=== PATIENT | male | born 1965 | race Caucasian/White ===

== ENCOUNTER → 2019-01-19 | Outpatient (CLI) | payer OTHER ==
[2019-01-19 09:15] LABS: HCT 44.2 % (39.0-53.0); HGB 14.8 gm/dL (13.0-17.5); MCH 31.1 pg (25.0-35.0); MCHC 33.4 g/dL (31.0-37.0); MCV 93.1 fL (80.0-100.0); Mean Platelet Volume 7.1; Platelet Count 314 k/uL (150-450); RBC 4.75 m/uL (4.30-5.90); RDW 12.8 % (11.5-15.5); WBC 8.1 k/uL (3.8-10.6)
[2019-01-19 09:21] LABS: Anion Gap 6 mmol/L; Blood Urea Nitrogen 16 mg/dL (9-20); Carbon Dioxide 28 mmol/L (22-30); Chloride 104 mmol/L (98-107); Glucose 117 mg/dL (74-99); Potassium 4.5 mmol/L (3.5-5.1); Sodium 138 mmol/L (137-145)
== END ==
LOC: LABPAT 07:49
PROVIDERS: ATTEND Internal Medicine Clinical Cardiac Electrophysiology
DX: Z01.812 Encounter for preprocedural laboratory examination (principal); I42.0 Dilated cardiomyopathy; I49.3 Ventricular premature depolarization
CPT/HCPCS: 36415; 80051; 82565; 82947; 84520; 85027

== ENCOUNTER 2019-01-25 10:23 | Day surgery (SDC) | payer OTHER ==
[~2019-01-25 10:23] MED LIST: SODIUM CHLORIDE 0.9% 1,000 ML IV SCH
[2019-01-25] MEDS ORDERED: SODIUM CHLORIDE 0.9% 1,000 ML IV ONE (11:00)
[2019-01-25] MEDS ORDERED: fentaNYL (PF) 50 MCG/ML 2 ML AMP ONE (11:12)
[2019-01-25] MEDS ORDERED: MIDAZOLAM 2 MG/2 ML VIAL ONE (11:12)
[2019-01-25] MEDS ORDERED: HEPARIN SODIUM,PORCINE 10,000 UNIT/ML 1 ML VIAL ONE (11:12)
[2019-01-25] MEDS ORDERED: ISOPROTERENOL 250 MCG/1.25 ML SYR IV ONE (11:12)
[2019-01-25] MEDS ORDERED: PROTAMINE SULFATE 10 MG/ML 5 ML VIAL IV ONE (11:12)
[2019-01-25] MEDS ORDERED: PROPOFOL 10 MG/ML 20 ML VIAL IV ONE (11:12)
[2019-01-25] MEDS ORDERED: LIDOCAINE 1% INJ 10MG/ML (20 ML MDV) ONE ×3 (11:40→15:36)
[2019-01-25] MEDS ORDERED: HEPARIN SODIUM 1,000 UN/ML (10ML VL) ONE ×2 (11:44→11:52)
[2019-01-25] MEDS ORDERED: LIDOCAINE 1% INJ 10MG/ML (20 ML MDV) SQ ONE (11:47)
[2019-01-25] MEDS ORDERED: HEPARIN SOD,PORK IN 0.45% NACL 25,000 UNIT in 0.45% NACL 1 250ML.BAG IV ONE (12:00)
[2019-01-25] MEDS ORDERED: HEPARIN SODIUM (1,000 UNIT/ML) 1,000 UNIT in SODIUM CHLORIDE 0.9% 1,000 ML IRRIGATION ONE (12:19)
[2019-01-25] MEDS ORDERED: HYDROcodone/APAP 5-325MG 1 EACH TAB PO PRN (15:56)
[2019-01-25] MEDS ORDERED: ACETAMINOPHEN IV (For NPO) 1,000 MG in EMPTY BAG 1 BAG IVPB ONE (15:56)
[2019-01-25] MEDS ORDERED: ACETAMINOPHEN TAB 325 MG TAB PO PRN (15:56)
--- NOTE | 2019-01-25 17:16 | PCN ---
PROCEDURE NOTE Mr. Harmon is a gentleman with cardiomyopathy, predominantly nonischemic, with history of RCA stenosis, status post stenting, whose cardiomyopathy has not improved. However, he has very frequent PVCs and he was advised an EP study and ablation for his PVCs, reassessment of LV function thereafter prior to consideration of ICD implantation. Patient was brought to the EP lab in a fasting state. Written informed consent was obtained prior to the procedure. The procedure performed under conscious sedation. The patient had predominantly one morphology of PVCs. This PVC had a right bundle branch block morphology, upright QRSs in the rest of the precordial leads, upright QRSs in the inferior leads and an RS pattern in lead I. The earliest onset of the QRS was in lead I. Sinus cycle length 945 milliseconds. GA interval 155 milliseconds. QRS 120 milliseconds. QT 394 milliseconds. Baseline AH interval 63 milliseconds and HV interval 37 milliseconds. An 8-[place] arterial sheath was placed in the right femoral artery, one venous sheath in the right femoral vein, 2 venous sheaths in the left femoral vein. Diagnostic mapping and ablation catheter and intracardiac echo catheters were placed. Catheters were placed in the high right atrium, His bundle area, right ventricle, coronary sinus and the left ventricle. Intracardiac echocardiography was performed and 3D mapping of the left ventricle was performed. At baseline there was no pericardial effusion and left ventricular ejection fraction was reduced. At the end of the procedure, assessment of pericardium on intracardiac echocardiography revealed no evidence for pericardial effusion, and the patient tolerated the procedure well without any acute complications. Initially the frequency of his PVCs under sedation were quite few; however, with atrial pacing, particularly with high right atrial and coronary sinus pacing at a cycle length of about 600 milliseconds, his PVCs became more frequent. Therefore, most of the PVC mapping and the mapping of the left ventricle was performed during atrial pacing. VA Wenckebach block was greater than 600 milliseconds. The following areas were mapped: 1. The aortic cusps and aortic root, particularly the right coronary cusp and the left coronary cusp and the commissure between them (activation mapping). 2. The left ventricle with particular focus on the anterior LVOT wall and the anterior base of the left ventricle. 3. The coronary sinus. Pacing within the coronary sinus, as close to the earliest site of activation in the LVOT, resulted in very poor pace maps. The LVOT was mapped in detail. At the earliest site, the bipolar electrograms were early with the unipolar electrograms; although negative, were only on time with the onset of the QRS. RF ablation in the LVOT was performed. The earliest site was just below the aortic cusps close to the junction between the right coronary and the left coronary cusp and slightly leftwards. The left coronary artery was mapped. The ostium of the left main was mapped using intracardiac echo. When the earliest site in the LVOT was ablated endocardially with good power and temperature up to 25-30 estrella, suppression of PVCs occurred, but the PVCs then returned. This did result in significant reduction of the PVCs, but the PVCs would return, especially with the atrial pacing. Mapping and ablation was performed within the right and left coronary cusps corresponding to the area in juxtaposition to the LVOT area, which was the earliest site. Clearly the LVOT was earlier than the aortic cusp. When complete elimination could not be achieved from the LVOT, 10-second RF lesions within the cusp were performed at 10 estrella. About 4 lesions were applied exactly in juxtaposition to where the LVOT ablations were performed. As noted above, the coronary sinus pace maps were very suboptimal, and therefore no ablation was performed within the coronary sinus. LVOT ablations were continued, slightly leftwards of earliest site, and this again resulted in complete suppression during RF ablation and further reduction in the PVC frequency. At the end of the procedure, pacing was performed at high output to document non- capture at the sites of ablation. The patient tolerated the procedure well without any acute complications, and all catheters were then removed. Heparin was reversed. RESULT: 1. Diagnostic EP study revealing predominantly one PVC morphology originating from the left ventricular outflow tract anteriorly just below the junction between the right and left coronary cusps and slightly towards the left side. Suppression with RF ablation and with mechanical pressure at this site. 2. RF ablation was also delivered in the aortic cusps, both at the level of the commissure between the RCC and LCC as well as towards the left cusp in close juxtaposition to the endocardial sites. These were very short low power bursts of about 10 estrella for 10 seconds each. 3. The coronary sinus and the coronary veins had very poor pace maps and no ablation was performed here. This resulted in significant reduction in the PVC burden, but the patient continued to have occasional clinical PVCs. This site most likely represents a slightly deep myocardial focus in the anterior LVOT. PLAN: Follow-up 24-hour Holter monitor and reassessment of LV function in about 4-6 weeks prior to making a decision regarding ICD implantation. AMELIE / SILVIA: [id number] /
[2019-01-25] MEDS: CARVEDILOL 3.125 MG TAB PO SCH (17:59)
[2019-01-25 18:17] VITALS: BMI 28.5
[2019-01-25] MEDS: SACUBITRIL/VALSARTAN 24 MG-26 MG TABLET PO SCH (20:33)
[2019-01-26] MEDS ORDERED: PANTOPRAZOLE 40 MG TABLET PO SCH (07:30)
[2019-01-26] MEDS: CARVEDILOL 3.125 MG TAB PO SCH (07:55)
[2019-01-26] MEDS: SACUBITRIL/VALSARTAN 24 MG-26 MG TABLET PO SCH (07:56)
--- NOTE | 2019-01-26 08:13 | P.DS ---
Providers Attending physician: Alexis Copeland Primary care physician: Stated None Hospital Course: Patient is doing well. His resting comfortably in bed. He has been ambulating in the hallways. Blood pressure is low normal. No JVD or no chest discomfort dizziness lightheadedness Telemetry shows PVCs Twelve-lead ECG shows clinical PVCs On examination his blood pressure is 127/66, 94/59 mmHg, pulse rate in the 60s afebrile 90F normal respirations Breath sounds are clear no rhonchi no crackles Abdomen soft nontender Heart sounds S1 and S2 are normal no murmurs no rub no gallop Extremities warm Groins of healed well there is no hematoma no swelling minimal tenderness Impression Frequent PVCs, deep myocardial focus anterior LVOT He has a history of predominantly nonischemic cardio myopathy Also has coronary artery disease stenting to the RCA in the past He was brought in for mapping and ablation of the PVCs The PVCs were mapped to the LVOT anterior wall just under the aortic valve, just below the commissure between the RCC and LCC and slightly towards the left side under the LCC, away from the left main The aortic cusps were mapped and signals were late The coronary veins was mapped and the pacemap showed concordance in the low 80s%. The morphology was completely different in lead 1 While the bipolar electrograms were early as compared to the onset of the PVC, the unipolar electrograms although deep negative were only on time with the onset of a QRS. In addition with mechanical pressure in the anterior LVOT suppression could be obtained at the earliest site RF ablation would result in temporary suppression of the PVCs. After RF delivery the PVCs return In the contact force was improved to between 15-20 g daily the suppression of the PVCs post RF was definitely longer with PVCs still occurred Final impression: Frequent PVCs originating the anterior LVOT deep myocardial focus, the aortic root was also mapped the coronary veins were also mapped Plan Discharge home today on cardio myopathy in heart failure medications and follow- up within 1-2 weeks for a groin check We will see him again in about 6-8 weeks and a 24-hour Holter monitor and a 2-D echo will be ordered. Thereafter decision regarding ICD implant Continue heart failure medications which has been well maximized Patient Condition at Discharge: Stable Plan - Discharge Summary Discharge Rx Participant: Yes New Discharge Prescriptions: No Action Omeprazole Magnesium [PriLOSEC OTC] 20 mg PO DAILY Aspirin 81 mg PO DAILY chew Atorvastatin [Lipitor] 80 mg PO DAILY #90 tab Carvedilol [Coreg] 3.125 mg PO BID-W/MEALS #180 tab Clopidogrel [Plavix] 75 mg PO DAILY #90 tab Furosemide [Lasix] 40 mg PO DAILY #90 tab Nitroglycerin Sl Tabs [Nitrostat] 0.4 mg SUBLINGUAL Q5M PRN #25 tab PRN Reason: Chest Pain Sacubitril/Valsartan [Entresto 24 mg-26 mg Tablet] 1 each PO BID #180 tablet Spironolactone [Aldactone] 25 mg PO DAILY #90 tab Discharge Medication List Omeprazole Magnesium [PriLOSEC OTC] 20 mg PO DAILY 07/17/18 [History] Aspirin 81 mg PO DAILY chew 07/21/18 [Rx] Atorvastatin [Lipitor] 80 mg PO DAILY #90 tab 07/21/18 [Rx] Carvedilol [Coreg] 3.125 mg PO BID-W/MEALS #180 tab 07/21/18 [Rx] Clopidogrel [Plavix] 75 mg PO DAILY #90 tab 07/21/18 [Rx] Furosemide [Lasix] 40 mg PO DAILY #90 tab 07/21/18 [Rx] Nitroglycerin Sl Tabs [Nitrostat] 0.4 mg SUBLINGUAL Q5M PRN #25 tab 07/21/18 [Rx] Sacubitril/Valsartan [Entresto 24 mg-26 mg Tablet] 1 each PO BID #180 tablet 07/21/18 [Rx] Spironolactone [Aldactone] 25 mg PO DAILY #90 tab 07/21/18 [Rx] Follow up Appointment(s)/Referral(s): Alexis Copeland MD [STAFF PHYSICIAN] - 2 Weeks (Groin check in [address] Patten/Diane) Activity/Diet/Wound Care/Special Instructions: Post EP study - Ablation instructions 1. Keep access sites dry for 2 days. 2. No heavy lifting or straining for 2 days. 3. Avoid bending the hips repeatedly for 2 days. 4. You may go up and down stairs slowly Call if the following is noted 1. Bleeding, increasing swelling or pain at the access sites. 2. Increasing chest discomfort, especially upon taking a deep breath. 3. Increasing shortness of breath, at rest or with exertion. 4. Undue cough / phlegm 5. Difficulty or pain while swallowing. 6. Pain or change in color in the extremities. 7. Fever, chills, rigors. 8. Increasing headache or neurologic symptoms. 9. Dizziness, fainting, palpitations No change in medications Follow-up with Dr. Patten/Diane Tillman within 2 weeks for a groin check
[2019-01-26] MEDS ORDERED: FUROSEMIDE 40 MG TAB PO SCH (09:00)
[2019-01-26] MEDS ORDERED: ATORVASTATIN 80 MG TAB PO SCH (09:00)
[2019-01-26] MEDS ORDERED: CLOPIDOGREL 75 MG TAB PO SCH (09:00)
[2019-01-26] MEDS ORDERED: SPIRONOLACTONE 25 MG TAB PO SCH (09:00)
[2019-01-26] MEDS ORDERED: ASPIRIN 81 MG PO SCH (09:00)
[2019-01-26 11:39] VITALS: BP 103/63; PULSE 51; RESP 18; TEMP 97.7
== END 2019-01-26 14:02 | disposition home or self-care (01) ==
LOC: CATHEP 10:23 → 1SOBS 15:12 → CATHEP 01-26 14:02
PROVIDERS: ATTEND Internal Medicine Clinical Cardiac Electrophysiology
DX: I49.3 Ventricular premature depolarization (principal); I42.0 Dilated cardiomyopathy; I25.10 Atherosclerotic heart disease of native coronary artery without angina pectoris; I11.0 Hypertensive heart disease with heart failure; I50.22 Chronic systolic (congestive) heart failure; Z72.0 Tobacco use; Z95.5 Presence of coronary angioplasty implant and graft; E78.5 Hyperlipidemia, unspecified; Z79.02 Long term (current) use of antithrombotics/antiplatelets; Z79.82 Long term (current) use of aspirin; Z79.899 Other long term (current) drug therapy
CPT/HCPCS: 85347; 93662; 93654; C1894; C1769 ×2; C1730 ×3; C1759; C1732; J2250; J2720; J1644 ×3; J2001; J3010; J2704

== ENCOUNTER 2019-04-16 07:25 | Emergency (ER) | payer OTHER ==
[2019-04-16 07:35] VITALS: RESP 18
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
[2019-04-16 08:13] LABS: ALT 48 U/L (21-72); AST 52 U/L (17-59); African American GFR (CKD) >90 (>60 ml/min/1.73 sqM); Albumin 4.6 g/dL (3.5-5.0); Alkaline Phosphatase 88 U/L (38-126); Anion Gap 10 mmol/L; Blood Urea Nitrogen 12 mg/dL (9-20); Calcium 9.5 mg/dL (8.4-10.2); Carbon Dioxide 22 mmol/L (22-30); Chloride 107 mmol/L (98-107); Glucose 126 mg/dL (74-99); Potassium 4.3 mmol/L (3.5-5.1); Sodium 139 mmol/L (137-145); Total Bilirubin 1.7 mg/dL (0.2-1.3); Total Protein 7.6 g/dL (6.3-8.2)
[2019-04-16 08:14] LABS: Basophils # (A) 0.1 k/uL (0-0.2); Basophils % (A) 1 %; Eosinophils # (A) 0.2 k/uL (0-0.7); Eosinophils % (A) 2 %; HCT 47.7 % (39.0-53.0); HGB 16.2 gm/dL (13.0-17.5); Lymphocytes # (A) 1.7 k/uL (1.0-4.8); Lymphocytes % (A) 15 %; MCH 31.4 pg (25.0-35.0); MCV 92.4 fL (80.0-100.0); Mean Platelet Volume 7.7; Monocytes # (A) 0.9 k/uL (0-1.0); Monocytes % (A) 8 %; Neutrophils # (A) 8.2 k/uL (1.3-7.7); Neutrophils % (A) 73 %; Platelet Count 300 k/uL (150-450); RBC 5.16 m/uL (4.30-5.90); RDW 14.5 % (11.5-15.5); WBC 11.2 k/uL (3.8-10.6)
[2019-04-16 08:18] LABS: INR 0.9 (<1.2); Partial Thromboplastin Time 27.4 sec (22.0-30.0); Prothrombin Time 9.8 sec (9.0-12.0)
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
[2019-04-16 10:33] VITALS: BP 136/86; PULSE 66; TEMP 98
== END 2019-04-16 10:10 | disposition home or self-care (01) ==
LOC: EC 07:25
DX: S20.212A Contusion of left front wall of thorax, initial encounter (principal); S40.012A Contusion of left shoulder, initial encounter; G93.89 Other specified disorders of brain; M48.32 Traumatic spondylopathy, cervical region; R05 Cough; K21.9 Gastro-esophageal reflux disease without esophagitis; Z95.5 Presence of coronary angioplasty implant and graft; Z87.891 Personal history of nicotine dependence; Z79.899 Other long term (current) drug therapy; V86.09XA Driver of other special all-terrain or other off-road motor vehicle injured in traffic accident, initial encounter
CPT/HCPCS: 36415; 93005; 80053; 84484; 85025; 85610; 85730; 72125; 70450; 71260; 74177; 99284; Q9967

== ENCOUNTER → 2020-08-01 | Outpatient (CLI) | payer OTHER ==
--- NOTE | 2020-08-01 15:40 | ECHOF ---
Referral Reason:I50.9 Heart failure, unspecified MEASUREMENTS -------- HEIGHT: 172.7 cm WEIGHT: 88.5 kg BP: RVIDd: 4.2 cm (< 3.3) IVSd: 1.2 cm (0.6 - 1.1) LVIDd: 5.1 cm (3.9 - 5.3) LVPWd: 1.8 cm (0.6 - 1.1) IVSs: 1.3 cm LVIDs: 4.7 cm LVPWs: 2.0 cm LAESV Index (A-L): 40.08 ml/m Ao Diam: 3.6 cm (2.0 - 3.7) AV Cusp: 1.7 cm (1.5 - 2.6) MV EXCURSION: 18.450 mm (> 18.000) MV EF SLOPE: 78 mm/s (70 - 150) EPSS: 2.2 cm MV E Aram: 0.96 m/s MV DecT: 228 ms MV A Aarm: 0.79 m/s MV E/A Ratio: 1.21 RAP: 5.00 mmHg RVSP: 23.73 mmHg FINDINGS -------- This was a technically adequate study. The left ventricular size is normal. There is mild concentric left ventricular hypertrophy. There is severe global hypokinesis of LV . Overall left ventricular systolic function is severely impair ed with, an EF between 20 - 25 %. Mitral Doppler inflow pattern suggests diastolic filling abnormal ity {E/E'}. The right ventricle is moderately enlarged. LA is severely dilated >40 ml/m2 The right atrial size is normal. Interatrial and interventricular septum intact. The aortic valve is trileaflet and appears structurally normal. There is no evidence of aortic regu rgitation. There is no evidence of aortic stenosis. Mild mitral regurgitation is present. Mild tricuspid regurgitation present. There is no evidence of pulmonary hypertension. The right v entricular systolic pressure, as measured by Doppler, is 23.73mmHg. There is no pulmonic regurgitation present. The aortic root size is normal. IVC Not well visulized. There is no pericardial effusion. CONCLUSIONS -------- 1. The left ventricular size is normal. 2. There is mild concentric left ventricular hypertrophy. 3. There is severe global hypokinesis of LV . 4. Overall left ventricular systolic function is severely impaired with, an EF between 20 - 25 %. 5. Mitral Doppler inflow pattern suggest diastolic filling abnormality {E/E'}. 6. The right ventricle is moderately enlarged. 7. LA is severely dilated >40 ml/m2 8. Mild mitral regurgitation is present. 9. Mild tricuspid regurgitation present. CADDY/CADDIE SUPERVISOR: Susana Nava RDCS
== END | disposition home or self-care (01) ==
LOC: RADECHMAIN 12:58
PROVIDERS: ATTEND Family Medicine
DX: I08.1 Rheumatic disorders of both mitral and tricuspid valves (principal); R93.1 Abnormal findings on diagnostic imaging of heart and coronary circulation; I50.9 Heart failure, unspecified
CPT/HCPCS: 93306

== ENCOUNTER → 2021-07-17 | Outpatient (CLI) | payer OTHER ==
[2021-07-18 03:56] LABS: African American GFR (CKD) 78.4 (60.0-200.0); Anion Gap 12.2 mmol/L (4.00-12.00); BUN/Creat Ratio 14.17 Ratio (12.00-20.00); Calcium 9.2 mg/dL (8.7-10.3); Carbon Dioxide 22.8 mmol/L (21.6-31.8); Non-African American GFR(CKD) 67.7 (60.0-200.0); Potassium 4.4 mmol/L (3.5-5.5)
== END | disposition home or self-care (01) ==
LOC: LABWHC1 09:50
PROVIDERS: ATTEND Internal Medicine Clinical Cardiac Electrophysiology
DX: I10 Essential (primary) hypertension (principal)
CPT/HCPCS: 36415; 80048

== ENCOUNTER 2021-09-10 11:32 | Emergency (ER) | payer OTHER ==
[2021-09-10 12:40] VITALS: BP 147/95; PULSE 61; RESP 15; TEMP 99.1
[2021-09-10 13:36] LABS: Basophils % (A) 1 %; Eosinophils % (A) 2 %; HCT 45.7 % (39.0-53.0); HGB 15.7 gm/dL (13.0-17.5); Lymphocytes % (A) 23 %; MCH 32.7 pg (25.0-35.0); MCHC 34.3 g/dL (31.0-37.0); MCV 95.4 fL (80.0-100.0); Mean Platelet Volume 8.1; Monocytes % (A) 7 %; Neutrophils % (A) 65 %; Platelet Count 326 k/uL (150-450); RBC 4.79 m/uL (4.30-5.90); RDW 12.3 % (11.5-15.5); WBC 8.2 k/uL (3.8-10.6)
[2021-09-10 13:37] LABS: Basophils # (A) 0.1 k/uL (0-0.2); Eosinophils # (A) 0.2 k/uL (0-0.7); Lymphocytes # (A) 1.9 k/uL (1.0-4.8); Monocytes # (A) 0.5 k/uL (0-1.0); Neutrophils # (A) 5.4 k/uL (1.3-7.7)
[2021-09-10 13:45] LABS: Appearance,Urine Cloudy (Clear); Bilirubin,Urine Negative (Negative); Blood,Urine Large (Negative); Color,Urine Red; Glucose,Urine (UA) Trace (Negative); Ketones,Urine Negative (Negative); Leukocyte Esterase,Urine Small (Negative); Nitrite,Urine Negative (Negative); PH, Urine 6.5 (5.0-8.0); Protein,Urine 1+ (Negative); RBC,Urine >182 /hpf (0-5); Urobilinogen,Urine <2.0 mg/dL (<2.0); WBC,Urine 13 /hpf (0-5)
[2021-09-10 13:50] LABS: ALT 35 U/L (4-49); African American GFR (CKD) >90 (>60 ml/min/1.73 sqM); Albumin 4.5 g/dL (3.5-5.0); Anion Gap 7 mmol/L; Blood Urea Nitrogen 14 mg/dL (9-20); Calcium 10.1 mg/dL (8.4-10.2); Carbon Dioxide 27 mmol/L (22-30); Chloride 102 mmol/L (98-107); Glucose 114 mg/dL (74-99); Non-African American GFR(CKD) 82 (>60 ml/min/1.73 sqM); Sodium 136 mmol/L (137-145); Total Bilirubin 0.8 mg/dL (0.2-1.3); Total Protein 7.6 g/dL (6.3-8.2)
[2021-09-10 13:53] LABS: AST 40 U/L (17-59); Alkaline Phosphatase 56 U/L (38-126); Potassium 5.1 mmol/L (3.5-5.1)
--- NOTE | 2021-09-10 13:58 | ED ---
General Adult HPI - General Chief complaint: Recheck/Abnormal Lab/Rx Stated complaint: Blood in urine Time Seen by Provider: 09/10/21 12:53 Source: patient, RN notes reviewed Mode of arrival: ambulatory Limitations: no limitations - History of Present Illness Initial comments: This a 56-year-old male presents emergency Department with chief complaint of hematuria. Patient states it started 2 weeks ago. He states does wax and wane occasionally does see some clots. He has no associated pain, denies dysuria, urinary frequency, flank pain, abdominal pain he states he does take a baby aspirin no other blood thinners denies any trauma he has no history of bladder or renal mass or cancer noted. - Related Data Home Medications Medication Instructions Recorded Confirmed Omeprazole Magnesium [PriLOSEC OTC] 20 mg PO DAILY 07/17/18 04/16/19 Previous Rx's Medication Instructions Recorded Aspirin 81 mg PO DAILY chew 07/21/18 Atorvastatin [Lipitor] 80 mg PO DAILY #90 tab 07/21/18 Clopidogrel [Plavix] 75 mg PO DAILY #90 tab 07/21/18 Furosemide [Lasix] 40 mg PO DAILY #90 tab 07/21/18 Nitroglycerin Sl Tabs [Nitrostat] 0.4 mg SUBLINGUAL Q5M PRN #25 tab 07/21/18 carvediloL [Coreg] 3.125 mg PO BID-W/MEALS #180 tab 07/21/18 HYDROcodone/APAP 5-325MG [[place] 1 tab PO Q6HR PRN #12 tab 04/16/19 5-325] Allergies Allergy/AdvReac Type Severity Reaction Status Date / Time No Known Allergies Allergy Verified 09/10/21 12:33 Review of Systems ROS Statement: Those systems with pertinent positive or pertinent negative responses have been documented in the HPI. ROS Other: All systems not noted in ROS Statement are negative. Past Medical History Past Medical History: GERD/Reflux, Hyperlipidemia, Hypertension History of Any Multi-Drug Resistant Organisms: None Reported Past Surgical History: Cardiac Ablation, Heart Catheterization With Stent Past Psychological History: No Psychological Hx Reported Smoking Status: Never smoker Past Alcohol Use History: Occasional Past Drug Use History: None Reported General Exam Limitations: no limitations General appearance: alert, in no apparent distress Head exam: Present: atraumatic, normocephalic, normal inspection Eye exam: Present: normal appearance, PERRL, EOMI. Absent: scleral icterus, conjunctival injection, periorbital swelling ENT exam: Present: normal exam, normal oropharynx, mucous membranes moist Neck exam: Present: normal inspection, full ROM. Absent: tenderness, meningismus, lymphadenopathy Respiratory exam: Present: normal lung sounds bilaterally. Absent: respiratory distress, wheezes, rales, rhonchi, stridor Cardiovascular Exam: Present: regular rate, normal rhythm, normal heart sounds. Absent: systolic murmur, diastolic murmur, rubs, gallop, clicks GI/Abdominal exam: Present: soft, normal bowel sounds. Absent: distended, tenderness, guarding, rebound, rigid Back exam: Absent: CVA tenderness (R), CVA tenderness (L) Course Vital Signs 09/10/21 12:38 Temperature 99.1 F Pulse Rate 61 Respiratory 15 Rate Blood Pressure 147/95 O2 Sat by Pulse 98 Oximetry Medical Decision Making - Medical Decision Making Labs urinalysis and CT were reviewed. Patient has gross hematuria, no signs of infection, CT shows bladder wall mass I did contact on-call urology Dr. Pinzon recommends the patient to call office to schedule an appointment for follow-up in office and return for any worsening change in symptoms. - Lab Data Result diagrams: 09/10/21 13:25 09/10/21 13:25 Lab Results 09/10/21 09/10/21 09/10/21 Range/Units 13:25 13:25 13:25 WBC 8.2 (3.8-10.6) k/uL RBC 4.79 (4.30-5.90) m/uL Hgb 15.7 (13.0-17.5) gm/dL Hct 45.7 (39.0-53.0) % MCV 95.4 (80.0-100.0) fL MCH 32.7 (25.0-35.0) pg MCHC 34.3 (31.0-37.0) g/dL RDW 12.3 (11.5-15.5) % Plt Count 326 (150-450) k/uL MPV 8.1 Neutrophils % 65 % Lymphocytes % 23 % Monocytes % 7 % Eosinophils % 2 % Basophils % 1 % Neutrophils # 5.4 (1.3-7.7) k/uL Lymphocytes # 1.9 (1.0-4.8) k/uL Monocytes # 0.5 (0-1.0) k/uL Eosinophils # 0.2 (0-0.7) k/uL Basophils # 0.1 (0-0.2) k/uL PT 9.8 (9.0-12.0) sec INR 0.9 (<1.2) APTT 25.1 (22.0-30.0) sec Sodium 136 L (137-145) mmol/L Potassium 5.1 (3.5-5.1) mmol/L Chloride 102 (98-107) mmol/L Carbon Dioxide 27 (22-30) mmol/L Anion Gap 7 mmol/L BUN 14 (9-20) mg/dL Creatinine 1.03 (0.66-1.25) mg/dL Est GFR (CKD-EPI)AfAm >90 (>60 ml/min/1.73 sqM) Est GFR (CKD-EPI)NonAf 82 (>60 ml/min/1.73 sqM) Glucose 114 H (74-99) mg/dL Calcium 10.1 (8.4-10.2) mg/dL Total Bilirubin 0.8 (0.2-1.3) mg/dL AST 40 (17-59) U/L ALT 35 (4-49) U/L Alkaline Phosphatase 56 (38-126) U/L Total Protein 7.6 (6.3-8.2) g/dL Albumin 4.5 (3.5-5.0) g/dL Urine Color Urine Appearance (Clear) Urine pH (5.0-8.0) Ur Specific [place] (1.001-1.035) Urine Protein (Negative) Urine Glucose (UA) (Negative) Urine Ketones (Negative) Urine Blood (Negative) Urine Nitrite (Negative) Urine Bilirubin (Negative) Urine Urobilinogen (<2.0) mg/dL Ur Leukocyte Esterase (Negative) Urine RBC (0-5) /hpf Urine WBC (0-5) /hpf 09/10/21 Range/Units 13:25 WBC (3.8-10.6) k/uL RBC (4.30-5.90) m/uL Hgb (13.0-17.5) gm/dL Hct (39.0-53.0) % MCV (80.0-100.0) fL MCH (25.0-35.0) pg MCHC (31.0-37.0) g/dL RDW (11.5-15.5) % Plt Count (150-450) k/uL MPV Neutrophils % % Lymphocytes % % Monocytes % % Eosinophils % % Basophils % % Neutrophils # (1.3-7.7) k/uL Lymphocytes # (1.0-4.8) k/uL Monocytes # (0-1.0) k/uL Eosinophils # (0-0.7) k/uL Basophils # (0-0.2) k/uL PT (9.0-12.0) sec INR (<1.2) APTT (22.0-30.0) sec Sodium (137-145) mmol/L Potassium (3.5-5.1) mmol/L Chloride (98-107) mmol/L Carbon Dioxide (22-30) mmol/L Anion Gap mmol/L BUN (9-20) mg/dL Creatinine (0.66-1.25) mg/dL Est GFR (CKD-EPI)AfAm (>60 ml/min/1.73 sqM) Est GFR (CKD-EPI)NonAf (>60 ml/min/1.73 sqM) Glucose (74-99) mg/dL Calcium (8.4-10.2) mg/dL Total Bilirubin (0.2-1.3) mg/dL AST (17-59) U/L ALT (4-49) U/L Alkaline Phosphatase (38-126) U/L Total Protein (6.3-8.2) g/dL Albumin (3.5-5.0) g/dL Urine Color Red Urine Appearance Cloudy (Clear) Urine pH 6.5 (5.0-8.0) Ur Specific [place] 1.020 (1.001-1.035) Urine Protein 1+ H (Negative) Urine Glucose (UA) Trace H (Negative) Urine Ketones Negative (Negative) Urine Blood Large H (Negative) Urine Nitrite Negative (Negative) Urine Bilirubin Negative (Negative) Urine Urobilinogen <2.0 (<2.0) mg/dL Ur Leukocyte Esterase Small H (Negative) Urine RBC >182 H (0-5) /hpf Urine WBC 13 H (0-5) /hpf Disposition Clinical Impression: Hematuria, Bladder mass Disposition: HOME SELF-CARE Condition: Stable Instructions (If sedation given, give patient instructions): Hematuria (ED) Additional Instructions: Please return to the Emergency Department if symptoms worsen or any other concerns. Is patient prescribed a controlled substance at d/c from ED?: No Referrals: Mary Gardner III, MD [Primary Care Provider] - 1-2 days Arnulfo Pinzon MD [STAFF PHYSICIAN] - 1-2 days Time of Disposition: 14:21
[2021-09-10 14:04] LABS: INR 0.9 (<1.2); Partial Thromboplastin Time 25.1 sec (22.0-30.0); Prothrombin Time 9.8 sec (9.0-12.0)
--- NOTE | 2021-09-10 14:11 | CT ---
EXAMINATION TYPE: CT abdomen pelvis w con DATE OF EXAM: 09/10/2021 COMPARISON: CT April 16, 2019 HISTORY: Hematuria CT DLP: 1091.9 mGycm, Automated Exposure Control for Dose Reduction was Utilized. CONTRAST: CT scan of the abdomen and pelvis is performed without oral but with IV Contrast, patient injected w ith 100 mL of Isovue 300. FINDINGS: LUNG BASES: No significant abnormality is appreciated. LIVER/GB: No significant abnormality is appreciated. PANCREAS: No significant abnormality is seen. SPLEEN: No significant abnormality is seen. ADRENALS: No significant abnormality is seen. KIDNEYS: Symmetric cortical medullary uptake and excretion without hydronephrosis seen bilaterally. N ew subtle irregular 1.6 cm hyperdense mass in the posterior right aspect of the bladder axial image 7 7 corresponds to coronal image 61 and sagittal image 61. Findings worrisome for focal neoplasm. Follo w-up advised. BOWEL: Slightly suboptimal evaluation without enteric contrast. Stomach poorly distended and suboptim ally evaluated. No suspicious small or large bowel dilatation. Normal-appearing appendix from the cec um. Few diverticula left colon. More prominent diverticulosis in the sigmoid colon. No CT evidence fo r acute diverticulitis. PROSTATE/SEMINAL VESICLES: No gross abnormality seen. LYMPH NODES: No greater than 1cm abdominal or pelvic lymph nodes are appreciated. OSSEOUS STRUCTURES: Mild to moderate chronic compression type fracture from L2 level redemonstrated. Underlying scoliosis with multilevel spurring in the spine OTHER: Moderate to large fat-containing umbilical hernia redemonstrated axial image 50. Moderate mixe d plaque of the aorta extends into branch vessels IMPRESSION: New irregular 1.6 cm hyperdense mass posterior lateral wall worrisome for neoplasm given symptoms of hematuria. Advise urology referral for cystoscopy evaluation.
== END 2021-09-10 14:34 | disposition home or self-care (01) ==
LOC: EC 11:32
DX: R31.9 Hematuria, unspecified (principal); N32.9 Bladder disorder, unspecified; I10 Essential (primary) hypertension; K21.9 Gastro-esophageal reflux disease without esophagitis; Z79.899 Other long term (current) drug therapy
CPT/HCPCS: 36415; 80053; 85025; 85610; 85730; 81001; 87086; 74177; 99284; Q9967

== ENCOUNTER → 2021-12-24 | Outpatient (CLI) | payer OTHER ==
[2021-12-24 14:57] LABS: HCT 44.8 % (39.6-50.0); HGB 14.7 g/dL (13.0-17.0); MCH 31.3 pg (27.0-32.0); MCHC 32.8 g/dL (32.0-37.0); MCV 95.5 fL (80.0-97.0); Mean Platelet Volume 10.7 fL (9.5-12.2); NRBC Per 100 WBC 0 /100 WBCS (0.0-0.0); Platelet Count 310 X 10*3/uL (140-440); RBC 4.69 X 10*6/uL (4.40-5.60); RDW 12.8 % (11.5-14.5); WBC 8.96 X 10*3/uL (4.50-10.00)
[2021-12-24 15:27] LABS: ALT 30 U/L (10-49); AST 30 U/L (14-35); African American GFR (CKD) 91.1 (60.0-200.0); Albumin 4.6 g/dL (3.8-4.9); Alkaline Phosphatase 72 U/L (41-126); BUN/Creat Ratio 13.21 Ratio (12.00-20.00); Calcium 9.6 mg/dL (8.7-10.3); Chloride 103 mmol/L (96-109); Chol/HDL Ratio 3.82 Ratio; Globulin 2.6 g/dL (1.6-3.3); Glucose 106 mg/dL (70-110); LDL Cholesterol,Calculated 145.2 mg/dL (0.0-131.0); Magnesium 2.5 mg/dL (1.5-2.4); Non-African American GFR(CKD) 78.6 (60.0-200.0); Sodium 139 mmol/L (135-145); Total Protein 7.2 g/dL (6.2-8.2)
== END | disposition home or self-care (01) ==
LOC: LABWHC1 10:07
PROVIDERS: ATTEND Nurse Practitioner Adult Health
DX: I50.22 Chronic systolic (congestive) heart failure (principal); E78.5 Hyperlipidemia, unspecified; I25.10 Atherosclerotic heart disease of native coronary artery without angina pectoris; I10 Essential (primary) hypertension
CPT/HCPCS: 36415; 80053; 80061; 83735; 84443; 85027

== ENCOUNTER → 2022-08-20 | Outpatient (CLI) | payer OTHER | END | disposition home or self-care (01) | LOC: LABPAT 13:06 | PROVIDERS: ATTEND Internal Medicine Clinical Cardiac Electrophysiology | DX: Z53.9 Procedure and treatment not carried out, unspecified reason (principal) ==

== ENCOUNTER → 2022-08-20 | Outpatient (CLI) | payer OTHER ==
[2022-08-20 17:56] LABS: Basophils # (A) 0.06 X 10*3/uL (0.00-0.10); Basophils % (A) 0.8 %; Eosinophils # (A) 0.23 X 10*3/uL (0.04-0.35); Eosinophils % (A) 3.1 %; HCT 41.2 % (39.6-50.0); HGB 14.1 g/dL (13.0-17.0); Immature Grans, Automated 0.1 %; Lymphocytes # (A) 2.08 X 10*3/uL (0.90-5.00); Lymphocytes % (A) 28.3 %; MCH 31.6 pg (27.0-32.0); MCHC 34.2 g/dL (32.0-37.0); MCV 92.4 fL (80.0-97.0); Mean Platelet Volume 10.9 fL (9.5-12.2); Monocytes # (A) 0.64 X 10*3/uL (0.20-1.00); Monocytes % (A) 8.7 %; NRBC Per 100 WBC 0 /100 WBCS (0.0-0.0); Neutrophils # (A) 4.34 X 10*3/uL (1.80-7.70); Platelet Count 276 X 10*3/uL (140-440); RBC 4.46 X 10*6/uL (4.40-5.60); RDW 12.8 % (11.5-14.5); WBC 7.36 X 10*3/uL (4.50-10.00)
[2022-08-20 18:25] LABS: African American GFR (CKD) 64.1 (60.0-200.0); Albumin 4.4 g/dL (3.8-4.9); Albumin/Globulin Ratio 1.67 (1.60-3.17); Anion Gap 10.9 mmol/L (10.00-18.00); BUN/Creat Ratio 10.71 Ratio (12.00-20.00); Blood Urea Nitrogen 15.1 mg/dL (9.0-27.0); Calcium 9.6 mg/dL (8.7-10.3); Carbon Dioxide 25.9 mmol/L (20.0-27.5); Globulin 2.7 g/dL (1.6-3.3); Non-African American GFR(CKD) 55.3 (60.0-200.0); Potassium 4.4 mmol/L (3.5-5.5); Total Bilirubin 0.6 mg/dL (0.30-1.20); Total Protein 7.1 g/dL (6.2-8.2)
== END | disposition home or self-care (01) ==
LOC: LABWHC1 13:08
PROVIDERS: ATTEND Family Medicine
DX: I11.0 Hypertensive heart disease with heart failure (principal); I50.22 Chronic systolic (congestive) heart failure; I25.10 Atherosclerotic heart disease of native coronary artery without angina pectoris; E78.5 Hyperlipidemia, unspecified; K21.9 Gastro-esophageal reflux disease without esophagitis
CPT/HCPCS: 36415; 80053; 82306; 84443; 85025

== ENCOUNTER 2022-08-27 09:58 | Day surgery (SDC) | payer OTHER ==
[2022-08-25 10:27] VITALS: BMI 27.3
[2022-08-27 10:29] VITALS: RESP 18
[2022-08-27] MEDS ORDERED: PROPOFOL 10 MG/ML 20 ML VIAL IV ONE (11:35)
--- NOTE | 2022-08-27 12:13 | P.EPPROC ---
- EP Procedure Note Electrophysiology Procedure Note: Diagnosis Cardio myopathy Dual ICD, [employer] Defibrillation level testing Atrial pacing impedance 608 ohms, RV pacing impedance 513 ohms High-voltage impedance 76 ohms Atrial pacing threshold 0.8 V at 0.4 ms RV pacing threshold 0.8 V at 0.4 ms VF induced successfully detected prepped with 4-5 dropouts at least sensitivity Successfully internally defibrillated with 10 J shock Shocking impedance 80 ohms No post shock noise Charge time 1.88 seconds The device was then programmed appropriately [id number], 50-120 ppm VT zone 176 beats a minute VF zone 214 beats a minute Appropriate antitachycardia pacing cardioversion and defibrillation First cardioversion at 10 J per patient tolerated the procedure well without any acute complications
[2022-08-27 12:41] VITALS: BP 131/63; PULSE 74
== END 2022-08-27 12:47 | disposition home or self-care (01) ==
LOC: CATHEP 09:58
PROVIDERS: ATTEND Internal Medicine Clinical Cardiac Electrophysiology
DX: I42.8 Other cardiomyopathies (principal); I50.9 Heart failure, unspecified; I47.20 Ventricular tachycardia, unspecified; I45.10 Unspecified right bundle-branch block; F12.90 Cannabis use, unspecified, uncomplicated; Z79.899 Other long term (current) drug therapy
CPT/HCPCS: 93642; J2704

== ENCOUNTER → 2024-04-10 | Outpatient (CLI) | payer OTHER ==
[2024-04-10 14:55] LABS: WBC 11.02 X 10*3/uL (4.50-10.00)
[2024-04-10 14:56] LABS: HCT 43.7 % (39.6-50.0); HGB 14.5 g/dL (13.0-17.0); MCH 31.5 pg (27.0-32.0); MCHC 33.2 g/dL (32.0-37.0); Mean Platelet Volume 10.8 FL (9.5-12.2); NRBC Per 100 WBC 0 X 10*3/uL (0.00-0.01); Platelet Count 311 X 10*3/uL (140-440); RDW 12.7 % (11.5-14.5)
[2024-04-10 15:04] LABS: ALT 29 U/L (10-49); AST 24 U/L (14-35); Albumin 4.7 g/dL (3.8-4.9); Albumin/Globulin Ratio 2.04 Ratio (1.60-3.17); Alkaline Phosphatase 74 U/L (41-126); BUN/Creat Ratio 15.45 Ratio (12.00-20.00); Calcium 9.9 mg/dL (8.7-10.3); Carbon Dioxide 25.6 mmol/L (21.6-31.8); Chloride 103 mmol/L (96-109); Chol/HDL Ratio 3.66 Ratio; Globulin 2.3 g/dL (1.6-3.3); Glucose 111 mg/dL (70-110); LDL Cholesterol,Calculated 135.8 mg/dL (0.0-131.0); Magnesium 2.2 mg/dL (1.5-2.4); Potassium 5.4 mmol/L (3.5-5.5); Sodium 140 mmol/L (135-145); Total Bilirubin 0.6 mg/dL (0.3-1.2)
== END | disposition home or self-care (01) ==
LOC: LABWHC1 09:26
PROVIDERS: ATTEND Internal Medicine Clinical Cardiac Electrophysiology
DX: E78.5 Hyperlipidemia, unspecified (principal); I10 Essential (primary) hypertension; I25.10 Atherosclerotic heart disease of native coronary artery without angina pectoris
CPT/HCPCS: 36415; 80053; 80061; 83735; 84443; 85027

== ENCOUNTER 2024-04-12 05:56 | Day surgery (SDC) | payer OTHER ==
[~2024-04-12 05:56] MED LIST changes: +ALPRAZolam 0.25 MG TAB PO PRN; +HEPARIN SODIUM,PORCINE (1 ML) 2,500 UNIT in SODIUM CHLORIDE 0.9% 250 ML IRRIGATION PRN; +HEPARIN SODIUM,PORCINE 10,000 UNIT in SODIUM CHLORIDE 0.9% 1,000 ML IRRIGATION PRN; +NITROGLYCERIN SL TABS 0.4 MG TAB SUBLINGUAL PRN; -SODIUM CHLORIDE 0.9% 1,000 ML IV SCH
[2024-04-12] MEDS: ASPIRIN 325 MG TAB PO STA (06:53)
[2024-04-12] MEDS: SODIUM CHLORIDE 0.9% 1,000 ML in EMPTY BAG 1 BAG IV SCH (06:54)
[2024-04-12] MEDS: ALPRAZolam 0.5 MG TAB PO PRN (07:01)
[2024-04-12] MEDS: IV FLUID CONTINUATION 1,000 ML IV ONE (07:11)
[2024-04-12] MEDS ORDERED: VERAPAMIL 2.5 MG/ML 2 ML AMP ONE (07:12)
[2024-04-12] MEDS ORDERED: HEPARIN SODIUM 1,000 UN/ML (10ML VL) ONE (07:12)
[2024-04-12] MEDS ORDERED: LIDOCAINE 1% INJ 10MG/ML (20 ML MDV) ONE (07:12)
[2024-04-12] MEDS: LIDOCAINE 1% INJ 10MG/ML (20 ML MDV) SQ ONE (07:49)
[2024-04-12] MEDS: VERAPAMIL SYRINGE (5 MG/10 ML) INTRAARTER ONE (07:49)
[2024-04-12] MEDS: HEPARIN SODIUM 1,000 UN/ML (10ML VL) IVP ONE (07:50)
[2024-04-12] MEDS: MIDAZOLAM 2 MG/2 ML VIAL IVP ONE (07:50)
[2024-04-12] MEDS: fentaNYL (PF) 50 MCG/ML 2 ML AMP IVP ONE (07:51)
[2024-04-12] MEDS ORDERED: PRASUGREL 10 MG TAB ONE (08:04)
[2024-04-12] MEDS: PRASUGREL 10 MG TAB PO ONE (08:05)
[2024-04-12] MEDS ORDERED: fentaNYL (PF) 50 MCG/ML 2 ML AMP ONE (08:13)
[2024-04-12] MEDS: IOPAMIDOL-370 100ML BTL INJ ONE ×2 (08:36→08:40)
[2024-04-12] MEDS: NITROGLYCERIN 1000MCG/10ML SYRINGE INTRACORON ONE (08:37)
[2024-04-12] MEDS ORDERED: ZOLPIDEM 5 MG TAB PO PRN (08:44)
[2024-04-12] MEDS ORDERED: RX INFO: IV CONTRAST WAS GIVEN 1 EACH MISC MISCELLANE PRN (08:44)
[2024-04-12] MEDS ORDERED: ATROPINE SULFATE 0.1 MG/ML 10ML SYRINGE IV PRN (08:44)
[2024-04-12] MEDS ORDERED: MAG HYDROX/AL HYDROX/SIMETH 30 ML CUP PO PRN (08:44)
--- NOTE | 2024-04-12 08:49 | P.PCN ---
Date of Procedure: 04/12/24 Operative Findings: CARDIAC CATHETERIZATION AND PERCUTANEOUS CORONARY INTERVENTION PERFORMING PHYSICIAN: Franc Payne MD, [facility] PROCEDURE PERFORMED: 1. Selective right and left coronary angiogram 2. Successful stenting of proximal RCA using 3 oh by 28 Xience ITALIA with an excellent angiographic results with adjunctive use of IVUS 3. Ultrasound-guided access of the right radial artery INDICATION: Chest discomfort in this 59-year-old gentleman who underwent myocardial perfusion imaging stress that showed an inferior ischemia COMPLICATION: None APPROACH: Right radial artery LEVEL OF SEDATION: Moderate with the sedation time off 57 minutes PROCEDURE DESCRIPTION: After obtaining informed consent the patient was brought to the cardiac Nuclear Physician. The right radial artery was cannulated using micropuncture technique under ultrasound guidance the micropuncture wire passed easily then I placed a 6 [place] 11 cm sheath at the right radial artery with a give the patient 2 mg of verapamil intra-arterial and 6000's of heparin intravenous with continuous ACT monitoring. Selective right and left coronary angiogram performed using JR4 and JL 3.5 catheters. After that I did intervene on the RCA. Anticoagulation continued using heparin with continuous ACT monitoring. Subsequently attempting engaging the RCA using JR4 guide was unsuccessful but was successful using an AL 0.75 guide. I did wired the RCA from the get go using 2 wires to give more support including 2 whisper wires. Intravascular ultrasound was performed and showed a diameter around 3 mm. Predilatation was performed using 2.5 mm and subsequently 3 mm NC balloon before I deployed 3.0 x 28 mm stent where the stent was positioned under fluoroscopy guidance and deployed under 18 ivelisse for 20 seconds with a final angiogram showing excellent angiographic results and the procedure was completed with no complication. SELECTIVE CORONARY ANGIOGRAM: The right coronary artery: Large-caliber vessel and a dominant vessel with patent stent in the midportion and severe disease involving the proximal to midportion Left main: Is angiographically normal The left circumflex: Large-caliber vessel and codominant vessel with intermediate disease involving the proximal to midportion The left anterior descending artery: Large-caliber vessel with intermediate to severe disease involving the proximal portion as well CONCLUSION: Severe disease involving the proximal to mid RCA. I performed successful PCI as described above Intermediate to severe disease involving both the proximal LCx and proximal LAD POSTPROCEDURE MANAGEMENT: 1. Dual antiplatelet therapy using aspirin and Brilinta for at least 6 month 2. IFR of both the LCx and LAD to be performed as a staged procedure 3. Follow-up with the patient
[2024-04-12] MEDS ORDERED: ASPIRIN 81 MG PO SCH (09:00)
[2024-04-12 14:50] VITALS: BMI 29.1
[2024-04-12] MEDS: carvediloL 3.125 MG TAB PO SCH (18:10)
[2024-04-12 19:35] VITALS: RESP 15
[2024-04-12] MEDS: ATORVASTATIN 80 MG TAB PO SCH (21:09)
[2024-04-13 02:47] VITALS: BP 107/63
[2024-04-13] MEDS: PANTOPRAZOLE 40 MG TABLET PO SCH (06:04)
[2024-04-13 07:15] LABS: Basophils # (A) 0.1 k/uL (0-0.2); Basophils % (A) 1 %; Eosinophils # (A) 0.2 k/uL (0-0.7); Eosinophils % (A) 2 %; HGB 13.4 gm/dL (13.0-17.5); Lymphocytes # (A) 1.5 k/uL (1.0-4.8); Lymphocytes % (A) 20 %; MCH 32.3 pg (25.0-35.0); MCHC 33.6 g/dL (31.0-37.0); MCV 96.3 fL (80.0-100.0); Mean Platelet Volume 8.3; Monocytes # (A) 0.5 k/uL (0-1.0); Monocytes % (A) 7 %; Neutrophils # (A) 5.1 k/uL (1.3-7.7); Neutrophils % (A) 69 %; Platelet Count 244 k/uL (150-450); RBC 4.15 m/uL (4.30-5.90); RDW 12.6 % (11.5-15.5); WBC 7.5 k/uL (3.8-10.6)
[2024-04-13 07:35] LABS: African American GFR (CKD) >90 (>60 ml/min/1.73 sqM); Anion Gap 5 mmol/L; Blood Urea Nitrogen 14 mg/dL (9-20); Calcium 8.9 mg/dL (8.4-10.2); Carbon Dioxide 22 mmol/L (22-30); Chloride 106 mmol/L (98-107); Glucose 112 mg/dL (74-99); Non-African American GFR(CKD) 85 (>60 ml/min/1.73 sqM); Potassium 4.4 mmol/L (3.5-5.1); Sodium 133 mmol/L (137-145)
--- NOTE | 2024-04-13 08:36 | P.DS ---
Providers Attending physician: Franc Payne Consults: 04/12/24 08:44 Consult Physician Routine Consulting Provider: [facility] Consult Reason/Comments: Post Interventional patient Do you want consulting provider notified?: Already Contacted Primary care physician: Stated None Hospital Course: The patient is a pleasant 59-year-old gentleman who underwent yesterday heart catheterization and was found to have critical disease involving the RCA and he underwent successful stenting of the RCA with a complex procedure with a good angiographic result signs with no complication by the end of the procedure. Also he was found to have intermediate to severe disease involving both the left circumflex and LAD need to be addressed by Doppler wire. He was seen and evaluated this morning. He is asymptomatic and hemodynamically stable. The patient is going to be discharged on dual antiplatelet therapy along with a statin. He will be seen by Dr. Copeland in the office. He will be scheduled to undergo an FFR of 40 LCx and LAD as well. The importance of taking dual antiplatelet therapy and the consequences including an ID and discussed with him in details with the presence of the nurse in the room. Plan - Discharge Summary Discharge Rx Participant: Yes New Discharge Prescriptions: New Prasugrel [Effient] 10 mg PO DAILY #90 tab Atorvastatin Calcium [Lipitor] 80 mg PO DAILY #90 tab Continue Omeprazole Magnesium [PriLOSEC OTC] 20 mg PO DAILY Aspirin 81 mg PO DAILY chew carvediloL [Coreg] 3.125 mg PO BID-W/MEALS #180 tab Nitroglycerin Sl Tabs [Nitrostat] 0.4 mg SUBLINGUAL Q5M PRN #25 tab PRN Reason: Chest Pain Sacubitril/Valsartan [Entresto 24 mg-26 mg Tablet] 1 tablet PO BID Spironolactone 25 mg PO DAILY Discharge Medication List Omeprazole Magnesium [PriLOSEC OTC] 20 mg PO DAILY 07/17/18 [History] Aspirin 81 mg PO DAILY chew 07/21/18 [Rx] Nitroglycerin Sl Tabs [Nitrostat] 0.4 mg SUBLINGUAL Q5M PRN #25 tab 07/21/18 [Rx] carvediloL [Coreg] 3.125 mg PO BID-W/MEALS #180 tab 07/21/18 [Rx] Sacubitril/Valsartan [Entresto 24 mg-26 mg Tablet] 1 tablet PO BID 08/27/22 [History] Spironolactone 25 mg PO DAILY 08/27/22 [History] Atorvastatin Calcium [Lipitor] 80 mg PO DAILY #90 tab 04/13/24 [Rx] Prasugrel [Effient] 10 mg PO DAILY #90 tab 04/13/24 [Rx] Follow up Appointment(s)/Referral(s): Alexis Copeland MD [STAFF PHYSICIAN] - 04/20/24 11:15 am (YOUR RECHECK APPT WILL BE WITH YOLANDA CARABALLO NP.) Patient Instructions/Handouts: Moderate Sedation (DC), Cardiac Rehabilitation (DC), Coronary Intravascular Stent Placement (DC), Coronary Angioplasty (DC), After Radial Heart Catheterization (GEN) Activity/Diet/Wound Care/Special Instructions: No driving for two days Ok to shower tomorrow but no baths, pools, lakes, doing dishes by hand for five days. (remove dressing after 24 hours/no need to reapply) Signs of infection IE: fever, rash, drainage from puncture site, swelling go to ER/doctor for immediate evaluation. Avoid using right wrist/hand to bend, flex, lift greater than 5 lbs for five days. For Heavy Bleeding of puncture site apply firm direct pressure and return to ER. Do not attempt to drive self. low sodium/low fat diet medications as directed by Cardiologists
[2024-04-13] MEDS: PRASUGREL 10 MG TAB PO SCH (08:44)
[2024-04-13] MEDS: ASPIRIN 81 MG PO SCH (08:44)
[2024-04-13] MEDS: SPIRONOLACTONE 25 MG TAB PO SCH (08:44)
[2024-04-13] MEDS: SACUBITRIL/VALSARTAN 24 MG-26 MG TABLET PO SCH (08:44)
[2024-04-13 11:09] VITALS: PULSE 95; TEMP 97.9
== END 2024-04-13 11:40 | disposition home or self-care (01) ==
LOC: CATHCVL 05:56 → 6NMEDSUR 08:40 → CATHCVL 04-13 11:40
PROVIDERS: ATTEND Internal Medicine Interventional Cardiology
DX: I25.10 Atherosclerotic heart disease of native coronary artery without angina pectoris (principal); Z79.02 Long term (current) use of antithrombotics/antiplatelets; Z79.82 Long term (current) use of aspirin
CPT/HCPCS: 92928; 92978; 93454; 80048; 85025; C1769 ×3; C1887 ×2; C1894; C1753; C1874; C1725 ×2; J2250; J2001; J3010; J1644; Q9967; J2305

== ENCOUNTER 2024-04-18 10:48 | Day surgery (SDC) | payer OTHER ==
[~2024-04-18 10:48] MED LIST changes: +ALPRAZolam 0.5 MG TAB PO PRN
[2024-04-18] MEDS ORDERED: VERAPAMIL 2.5 MG/ML 2 ML AMP ONE (12:39)
[2024-04-18] MEDS ORDERED: LIDOCAINE 1% INJ 10MG/ML (20 ML MDV) ONE (12:39)
[2024-04-18] MEDS ORDERED: HEPARIN SODIUM 1,000 UN/ML (10ML VL) ONE (12:39)
[2024-04-18] MEDS: MIDAZOLAM 2 MG/2 ML VIAL IVP ONE ×2 (13:11→13:39)
[2024-04-18] MEDS: IV FLUID CONTINUATION 1,000 ML IV ONE (13:11)
[2024-04-18] MEDS: LIDOCAINE 1% INJ 10MG/ML (20 ML MDV) SQ ONE (13:18)
[2024-04-18] MEDS: VERAPAMIL SYRINGE (5 MG/10 ML) INTRAARTER ONE (13:19)
[2024-04-18] MEDS: HEPARIN SODIUM 1,000 UN/ML (10ML VL) IVP ONE (13:21)
[2024-04-18] MEDS: fentaNYL (PF) 50 MCG/1 ML VIAL IVP ONE (13:36)
[2024-04-18] MEDS ORDERED: fentaNYL (PF) 50 MCG/ML 2 ML AMP ONE (13:36)
[2024-04-18] MEDS ORDERED: MORPHINE SULFATE 4 MG/ML SYRINGE ONE (13:44)
[2024-04-18] MEDS: MORPHINE SULFATE 4 MG/ML SYRINGE IVP ONE (13:45)
[2024-04-18] MEDS: NITROGLYCERIN 1000MCG/10ML SYRINGE INTRACORON ONE (14:00)
[2024-04-18] MEDS ORDERED: NITROGLYCERIN SL TABS 0.4 MG TAB SUBLINGUAL PRN ×2 (14:16→14:17)
[2024-04-18] MEDS ORDERED: MAG HYDROX/AL HYDROX/SIMETH 30 ML CUP PO PRN (14:17)
[2024-04-18] MEDS ORDERED: ATROPINE SULFATE 0.1 MG/ML 10ML SYRINGE IV PRN (14:17)
[2024-04-18] MEDS ORDERED: RX INFO: IV CONTRAST WAS GIVEN 1 EACH MISC MISCELLANE PRN (14:17)
[2024-04-18] MEDS ORDERED: ZOLPIDEM 5 MG TAB PO PRN (14:17)
[2024-04-18] MEDS: IOPAMIDOL-370 200ML BTL INJ ONE (14:22)
--- NOTE | 2024-04-18 14:23 | P.PCN ---
Date of Procedure: 04/18/24 Operative Findings: PERCUTANEOUS CORONARY INTERVENTION Performing physician Franc Payne M.D. Procedure Performed: 1. Successful stenting of the mid LAD using 3.5 x 23 mm Xience drug-eluting stent with an excellent angiographic results. 2. Adjunctive use of intravascular ultrasound and Doppler wire 3. Ultrasound-guided access of the right radial artery and selective right common femoral artery angiogram Indication: Severe coronary artery disease in the symptomatic 59-year-old gentleman Approach: Right radial artery and right common femoral artery Complications: None Level of Sedation: Moderate with a sedation length of 51 minutes Procedure Discussion: After obtaining informed consent the patient was brought to the cardiac Process Control Specialist. The right radial artery was cannulated using micropuncture technique under ultrasound guidance and the micropuncture wire passed easily then I placed a 6 [place] 11 cm sheath at the right radial artery. Anticoagulation was initiated using heparin with continuous ACT monitoring. Subsequently I did 0 the Dobler wire and equalized between the Doppler wire and guiding catheter which was JL 3.5 guiding catheter and subsequently the left main was engaged and left circumflex was wired. We did an IFR of the left circumflex and that came in to be at 0.96. Subsequently the guide came out and attempting engaging the left main using JL 3 and XB was unsuccessful and at that point I decided to go from the groin. Right common femoral artery was cannulated using micropuncture technique and the micropuncture wire passed easily then I placed a 6 [place] sheath. After that I was able to go again using the JL 3.5 guiding catheter and again I normalized between the Doppler wire and guiding catheter and subsequently the left main was engaged and the LAD was wired. IFR was done on the LAD and came in to be at 0.82. After that intravascular ultrasound was performed and showed a diameter around 3.5 mm. Predilatation was performed using 2.5 mm balloon before I deployed 3.5 x 23 mm stent which was postdilated using 3.75 mm NC balloon. Final angiogram showed excellent angiographic results and the procedure was completed with no complication Conclusion: Severe disease involving the mid LAD. I did perform successful stenting of the LAD as described above with an excellent angiographic results Intermediate disease involving the proximal LCx documented to be nonflow limiting by Doppler wire with IFR of 0.96 Postprocedure Management: 1. Dual antiplatelet therapy using aspirin and Effient for at least 6 months 2. Aggressive cholesterol control 3. Risk factors modification
[2024-04-18] MEDS: HYDROmorphone 1 MG/ML 1 ML SYRINGE ONE (16:26)
[2024-04-18] MEDS: SODIUM CHLORIDE 0.9% 1,000 ML in EMPTY BAG 1 BAG IV SCH ×2 (18:32→18:33)
[2024-04-18] MEDS: ASPIRIN 325 MG TAB PO STA (18:32)
[2024-04-18] MEDS: ATORVASTATIN 80 MG TAB PO STA (18:32)
[2024-04-18] MEDS: HYDROmorphone 1 MG/ML 1 ML SYRINGE IVP STA (18:33)
[2024-04-18] MEDS: SACUBITRIL/VALSARTAN 24 MG-26 MG TABLET PO SCH (20:51)
[2024-04-18] MEDS: carvediloL 3.125 MG TAB PO SCH (20:51)
[2024-04-19 04:59] LABS: African American GFR (CKD) >90 (>60 ml/min/1.73 sqM); Non-African American GFR(CKD) 79 (>60 ml/min/1.73 sqM)
[2024-04-19] MEDS: PANTOPRAZOLE 40 MG TABLET PO SCH (06:01)
[2024-04-19] MEDS: ASPIRIN 81 MG PO SCH (08:08)
[2024-04-19] MEDS: ATORVASTATIN 80 MG TAB PO SCH (08:08)
[2024-04-19] MEDS: SPIRONOLACTONE 25 MG TAB PO SCH (08:08)
[2024-04-19 09:02] VITALS: BP 127/69; PULSE 60; RESP 20; TEMP 97.7
--- NOTE | 2024-04-19 09:49 | P.DS ---
Providers Attending physician: Franc Payne Consults: 04/18/24 14:17 Consult Physician Routine Consulting Provider: [facility] Consult Reason/Comments: Post Interventional patient Do you want consulting provider notified?: Already Contacted Primary care physician: Stated None Hospital Course: This is a 59-year-old male who underwent cardiac catheterization with Dr. Payne yesterday. Patient underwent stenting of the mid LAD. Patient is doing well post procedure with no complications noted. He denies any chest pain or pressure. Denies any shortness of breath. Vital signs are stable. Patient is deemed stable for discharge home today. Please see EMR for further hospital course details. The patient will be discharged home on dual antiplatelet therapy using aspirin and Effient for 6 months. Continue high intensity statin at discharge. LDL goal less than 70. Discharge diagnosis Coronary artery disease, status post stenting of the mid LAD Intermediate disease involving the proximal LCx documented to be nonflow limiting by Doppler wire with IFR of 0.96 Nurse practitioner note has been reviewed by physician. Signing provider agrees with the documented findings, assessment, and plan of care documented by PUBLICITY MANAGER as a scribe. Plan - Discharge Summary Discharge Rx Participant: No New Discharge Prescriptions: Continue Omeprazole Magnesium [PriLOSEC OTC] 20 mg PO DAILY Aspirin 81 mg PO DAILY chew carvediloL [Coreg] 3.125 mg PO BID-W/MEALS #180 tab Nitroglycerin Sl Tabs [Nitrostat] 0.4 mg SUBLINGUAL Q5M PRN #25 tab PRN Reason: Chest Pain Prasugrel [Effient] 10 mg PO DAILY #90 tab Atorvastatin Calcium [Lipitor] 80 mg PO DAILY #90 tab Sacubitril/Valsartan [Entresto 24 mg-26 mg Tablet] 1 tablet PO BID Spironolactone 25 mg PO DAILY Aspirin 325 mg PO ONCE Discharge Medication List Omeprazole Magnesium [PriLOSEC OTC] 20 mg PO DAILY 07/17/18 [History] Aspirin 81 mg PO DAILY chew 07/21/18 [Rx] Nitroglycerin Sl Tabs [Nitrostat] 0.4 mg SUBLINGUAL Q5M PRN #25 tab 07/21/18 [Rx] carvediloL [Coreg] 3.125 mg PO BID-W/MEALS #180 tab 07/21/18 [Rx] Sacubitril/Valsartan [Entresto 24 mg-26 mg Tablet] 1 tablet PO BID 08/27/22 [History] Spironolactone 25 mg PO DAILY 08/27/22 [History] Atorvastatin Calcium [Lipitor] 80 mg PO DAILY #90 tab 04/13/24 [Rx] Prasugrel [Effient] 10 mg PO DAILY #90 tab 04/13/24 [Rx] Aspirin 325 mg PO ONCE 04/18/24 [History] Follow up Appointment(s)/Referral(s): Alexis Copeland MD [STAFF PHYSICIAN] - 1 Week Franc Payne MD [STAFF PHYSICIAN] - 1 Week (Appt on 04/20/24 at 11:15am) Activity/Diet/Wound Care/Special Instructions: PLEASE CALL CARDIOLOGY OFFICE AND MAKE PATIENT AN APPOINTMENT WITH DR. COPELAND AND CANCEL APPT SCHEDULED WITH TAVIA. PATIENT FOLLOWS WITH DR. COPELAND
[2024-04-19] MEDS: PRASUGREL 10 MG TAB PO SCH (10:16)
== END 2024-04-19 10:42 | disposition home or self-care (01) ==
LOC: CATHCVL 10:48 → 6NMEDSUR 17:41 → 1SOBS 18:51 → CATHCVL 04-19 10:42
PROVIDERS: ATTEND Internal Medicine Interventional Cardiology
DX: I25.10 Atherosclerotic heart disease of native coronary artery without angina pectoris (principal); Z95.5 Presence of coronary angioplasty implant and graft
CPT/HCPCS: 92978; 93799; 82565; C9600; J2250; J2270; J2001; J1644; J1170; J3010; Q9967; J2305

== ENCOUNTER 2024-06-02 07:18 | Observation (INO) | payer BC, OTHER ==
[2024-06-02 07:30] VITALS: TEMP 98.3
--- NOTE | 2024-06-02 07:59 | ED ---
General Adult HPI - General Chief complaint: Arrhythmia/Palpitations Stated complaint: defibrillator alert Time Seen by Provider: 06/02/24 07:30 Source: patient, RN notes reviewed, old records reviewed Mode of arrival: ambulatory Limitations: no limitations - History of Present Illness Initial comments: This is a 59-year-old male who presents to the emergency department stating that over the last 3 days his defibrillator has made alarms sound sounding very much like a [place] police car. Patient states it happened once on Tuesday once on and 3 times last night. Patient states there is been no chest pain difficulty breathing or shortness of breath. Patient denies any fever chills or cough. Patient states he has no symptoms whatsoever aside from this alarm that is going off. - Related Data Home Medications Medication Instructions Recorded Confirmed Omeprazole Magnesium [PriLOSEC OTC] 20 mg PO DAILY 07/17/18 06/02/24 Sacubitril/Valsartan [Entresto 24 1 tab PO BID 08/27/22 06/02/24 mg-26 mg Tablet] Spironolactone 25 mg PO DAILY 08/27/22 06/02/24 Apixaban [Eliquis] 5 mg PO BID 06/02/24 06/02/24 carvediloL [Coreg] 6.25 mg PO BID 06/02/24 06/02/24 Previous Rx's Medication Instructions Recorded Aspirin 81 mg PO DAILY chew 07/21/18 Atorvastatin Calcium [Lipitor] 80 mg PO DAILY #90 tab 04/13/24 Prasugrel [Effient] 10 mg PO DAILY #90 tab 04/13/24 Allergies Allergy/AdvReac Type Severity Reaction Status Date / Time No Known Allergies Allergy Verified 06/02/24 10:31 Review of Systems ROS Statement: Those systems with pertinent positive or pertinent negative responses have been documented in the HPI. ROS Other: All systems not noted in ROS Statement are negative. Past Medical History Past Medical History: GERD/Reflux, Hyperlipidemia, Hypertension Additional Past Medical History / Comment(s): recent stress test, hx. bladder cancer-had several tx.'s of chemo instilled in bladder, chronic congestion History of Any Multi-Drug Resistant Organisms: None Reported Past Surgical History: Cardiac Ablation, Heart Catheterization With Stent Additional Past Surgical History / Comment(s): surg for bladder cancer Past Anesthesia/Blood Transfusion Reactions: No Reported Reaction Date of Last Stent Placement:: 2017 Past Psychological History: No Psychological Hx Reported Smoking Status: Never smoker Past Alcohol Use History: Occasional Past Drug Use History: None Reported - Past Family History Father Family Medical History: No Reported History General Exam - General Exam Comments Initial Comments: GENERAL: Patient is well-developed and well-nourished. Patient is nontoxic and well- hydrated and is in no acute distress. ENT: Neck is soft and supple. No significant lymphadenopathy is noted. Oropharynx is clear. Moist mucous membranes. Neck has full range of motion without eliciting any pain. EYES: The sclera were anicteric and conjunctiva were pink and moist. Extraocular movements were intact and pupils were equal round and reactive to light. Eyelids were unremarkable. PULMONARY: Unlabored respirations. Good breath sounds bilaterally. No audible rales rhonchi or wheezing was noted. CARDIOVASCULAR: There is a regular rate and rhythm without any murmurs gallops or rubs. ABDOMEN: Soft and nontender with normal bowel sounds. No palpable organomegaly was noted. There is no palpable pulsatile mass. SKIN: Skin is clear with no lesions or rashes and otherwise unremarkable. NEUROLOGIC: Patient is alert and oriented x3. Cranial nerves II through XII are grossly intact. Motor and sensory are also intact. Normal speech, volume and content. Symmetrical smile. MUSCULOSKELETAL: Normal extremities with adequate strength and full range of motion. No lower extremity swelling or edema. No calf tenderness. LYMPHATICS: No significant lymphadenopathy is noted PSYCHIATRIC: Normal psychiatric evaluation. Limitations: no limitations Course Vital Signs 06/02/24 06/02/24 06/02/24 07:26 07:54 08:00 Temperature 98.3 F Pulse Rate 33 L 60 65 Respiratory 18 14 18 Rate Blood Pressure 142/69 131/95 131/95 O2 Sat by Pulse 99 97 98 Oximetry 06/02/24 06/02/24 06/02/24 08:30 09:00 09:30 Temperature Pulse Rate 58 L 60 61 Respiratory 13 13 13 Rate Blood Pressure 128/56 134/53 133/79 O2 Sat by Pulse 96 97 97 Oximetry 06/02/24 06/02/24 06/02/24 10:00 10:03 10:30 Temperature Pulse Rate 64 57 L 62 Respiratory 14 18 13 Rate Blood Pressure 147/58 140/64 117/59 O2 Sat by Pulse 96 97 98 Oximetry Medical Decision Making - Medical Decision Making EKG is interpreted by myself read EKG shows a paced rhythm at 69 bpm parables 185 QRS is 100 QT interval 388 QTc is 407. Patient's EKG shows a paced rhythm with multiple PVCs in a bigeminal format Was pt. sent in by a medical professional or institution (KELLY Euceda, SDV PILOT/NAVIGATOR/DDS OPERATOR, urgent care, hospital, or fdc...) When possible be specific @ -No Did you speak to anyone other than the patient for history (EMS, parent, family, police, friend...)? What history was obtained from this source @ -No Did you review nursing and triage notes (agree or disagree)? Why? @ -I reviewed and agree with nursing and triage notes Were old charts reviewed (outside hosp., previous admission, EMS record, old EKG, old radiological studies, urgent care reports/EKG's, fdc records)? Report findings @ -No old charts were reviewed Differential Diagnosis? @ -Arrhythmia, V. tach, V-fib, pacemaker malfunction, pacemaker battery malfunction, this is not an all-inclusive list EKG interpreted by me (3pts min.). @ -As above X-rays interpreted by me (1pt min.). @ -None done CT interpreted by me (1pt min.). @ -None done U/S interpreted by me (1pt. min.). @ -None done What testing was considered but not performed or refused? (CT, X-rays, U/S, labs)? Why? @ -None What meds were considered but not given or refused? Why? @ -None Did you discuss the management of the patient with other professionals (professionals i.e. KELLY Euceda, SDV PILOT/NAVIGATOR/DDS OPERATOR, lab, RT, psych nurse, social media coordinator, assistant brand manager, teacher, principal gifts officer, rn field case manager)? Give summary @ -I spoke with Dr. Manning and he wanted the patient admitted after labs were done. I spoke with [facility] hospitalist and they agreed to admit the patient Was smoking cessation discussed for >3mins.? @ -No Was critical care preformed (if so, how long)? @ -No Were there social determinants of health that impacted care today? How? (Homelessness, low income, unemployed, alcoholism, drug addiction, transportation, low edu. Level, literacy, decrease access to med. care, ch[facility], rehab)? @ -No Was there de-escalation of care discussed even if they declined (Discuss DNR or withdrawal of care, Hospice)? DNR status @ -No What co-morbidities impacted this encounter? (DM, HTN, Smoking, COPD, CAD, Cancer, CVA, ARF, Chemo, Hep., AIDS, mental health diagnosis, sleep apnea, morbid obesity)? @ -None Was patient admitted / discharged? Hospital course, mention meds given and route, prescriptions, significant lab abnormalities, going to OR and other pertinent info. @ -Patient was asymptomatic and lab work was normal [facility] Undiagnosed new problem with uncertain prognosis? @ -No Drug Therapy requiring intensive monitoring for toxicity (Heparin, Nitro, Insulin, Cardizem)? @ -No Were any procedures done? @ -No Diagnosis/symptom? @ -Defibrillator malfunction Acute, or Chronic, or Acute on Chronic? @ -Acute Uncomplicated (without systemic symptoms) or Complicated (systemic symptoms)? @ -Uncomplicated Side effects of treatment? @ -No Exacerbation, Progression, or Severe Exacerbation? @ -No Poses a threat to life or bodily function? How? (Chest pain, USA, ND, pneumonia, PE, COPD, DKA, ARF, appy, cholecystitis, CVA, Diverticulitis, Homicidal, Suicidal, threat to staff... and all critical care pts) @ -No - Lab Data Result diagrams: 06/02/24 09:55 06/02/24 09:55 Lab Results 06/02/24 06/02/24 06/02/24 Range/Units 09:55 09:55 09:55 WBC 9.0 (3.8-10.6) k/uL RBC 4.47 (4.30-5.90) m/uL Hgb 14.4 (13.0-17.5) gm/dL Hct 42.7 (39.0-53.0) % MCV 95.4 (80.0-100.0) fL MCH 32.2 (25.0-35.0) pg MCHC 33.7 (31.0-37.0) g/dL RDW 12.4 (11.5-15.5) % Plt Count 286 (150-450) k/uL MPV 7.8 Neutrophils % 66 % Lymphocytes % 23 % Monocytes % 7 % Eosinophils % 3 % Basophils % 1 % Neutrophils # 6.0 (1.3-7.7) k/uL Lymphocytes # 2.0 (1.0-4.8) k/uL Monocytes # 0.6 (0-1.0) k/uL Eosinophils # 0.2 (0-0.7) k/uL Basophils # 0.1 (0-0.2) k/uL Sodium 135 L (137-145) mmol/L Potassium 4.5 (3.5-5.1) mmol/L Chloride 106 (98-107) mmol/L Carbon Dioxide 24 (22-30) mmol/L Anion Gap 5 mmol/L BUN 15 (9-20) mg/dL Creatinine 0.87 (0.66-1.25) mg/dL Est GFR (CKD-EPI)AfAm >90 (>60 ml/min/1.73 sqM) Est GFR (CKD-EPI)NonAf >90 (>60 ml/min/1.73 sqM) Glucose 118 H (74-99) mg/dL Calcium 9.4 (8.4-10.2) mg/dL Magnesium 1.9 (1.6-2.3) mg/dL Total Bilirubin 1.0 (0.2-1.3) mg/dL AST 32 (17-59) U/L ALT 25 (4-49) U/L Alkaline Phosphatase 59 (38-126) U/L Troponin I 0.015 (0.000-0.034) ng/mL Total Protein 6.7 (6.3-8.2) g/dL Albumin 4.1 (3.5-5.0) g/dL Disposition Clinical Impression: ICD (implantable cardioverter-defibrillator) malfunction Disposition: ADMITTED IP TO THIS HOSP Referrals: None,Stated [Primary Care Provider] - 1-2 days Time of Disposition: 11:21
[2024-06-02 10:12] LABS: Basophils # (A) 0.1 k/uL (0-0.2); Basophils % (A) 1 %; Eosinophils # (A) 0.2 k/uL (0-0.7); Eosinophils % (A) 3 %; HCT 42.7 % (39.0-53.0); HGB 14.4 gm/dL (13.0-17.5); Lymphocytes % (A) 23 %; MCH 32.2 pg (25.0-35.0); MCHC 33.7 g/dL (31.0-37.0); MCV 95.4 fL (80.0-100.0); Mean Platelet Volume 7.8; Monocytes # (A) 0.6 k/uL (0-1.0); Monocytes % (A) 7 %; Neutrophils % (A) 66 %; Platelet Count 286 k/uL (150-450); RBC 4.47 m/uL (4.30-5.90); RDW 12.4 % (11.5-15.5)
[2024-06-02 10:32] VITALS: BP 117/59; PULSE 62; RESP 13
[2024-06-02 10:44] LABS: ALT 25 U/L (4-49); AST 32 U/L (17-59); African American GFR (CKD) >90 (>60 ml/min/1.73 sqM); Albumin 4.1 g/dL (3.5-5.0); Alkaline Phosphatase 59 U/L (38-126); Anion Gap 5 mmol/L; Blood Urea Nitrogen 15 mg/dL (9-20); Calcium 9.4 mg/dL (8.4-10.2); Carbon Dioxide 24 mmol/L (22-30); Chloride 106 mmol/L (98-107); Glucose 118 mg/dL (74-99); Magnesium 1.9 mg/dL (1.6-2.3); Non-African American GFR(CKD) >90 (>60 ml/min/1.73 sqM); Potassium 4.5 mmol/L (3.5-5.1); Sodium 135 mmol/L (137-145); Total Protein 6.7 g/dL (6.3-8.2)
[2024-06-02] MEDS: MAGNESIUM OXIDE 400 MG TAB PO SCH (12:52)
[2024-06-02] MEDS: MAGNESIUM SULFATE-D5W PMX 1 GM in DEXTROSE/WATER 1 100ML.BAG IVPB SCH (12:53)
--- NOTE | 2024-06-02 17:06 | P.HPIM ---
History of Present Illness H&P Date: 06/02/24 History of present illness: 59-year-old male patient with past medical history significant for hypertension, hyperlipidemia, GERD, status post defibrillator for cardiomyopathy who presented to ER for evaluation of his defibrillation making alarm sounds sounding like a police car. Patient stated that he happened once on Tuesday and later on . Patient reported that it happened again 3 times last night which made him concerned and he decided come to the ED. Patient was completely asymp tomatic, denied any chest pain, palpitation, shortness of breath, dizziness, syncope, fever, chills, productive cough. Vital stable, afebrile, heart rate 62, respiratory rate 13, blood pressure 117/59, saturating 98% on room air. CBC was unremarkable. BMP also unremarkable except mildly low sodium 135. REVIEW OF SYSTEMS: CONSTITUTIONAL: No fever, no malaise, no fatigue. HEENT: No recent visual problems or hearing problems. Denied any sore throat. CARDIOVASCULAR: No chest pain, orthopnea, PND, no palpitations, no syncope. PULMONARY: No shortness of breath, no cough, no hemoptysis. GASTROINTESTINAL: No diarrhea, no nausea, no vomiting, no abdominal pain. NEUROLOGICAL: No headaches, no weakness, no numbness. HEMATOLOGICAL: Denies any bleeding or petechiae. GENITOURINARY: Denies any burning micturition, frequency, or urgency. MUSCULOSKELETAL/RHEUMATOLOGICAL: Denies any joint pain, swelling, or any muscle pain. ENDOCRINE: Denies any polyuria or polydipsia. The rest of the 14-point review of systems is negative. PHYSICAL EXAMINATION: GENERAL: A&O x3, NAD HEENT: EOMI, Sclerae anicteric, Moist Mucous membranes Neck: Supple, Non tender, No JVD PULMONARY: Equal breath souds B/L, No wheezing, No crackles. CARDIOVASCULAR: S1, S2 present. No murmurs, rubs, or gallops. ABDOMEN: Soft, nontender, nondistended, normoactive bowel sounds. No guarding or rebound tenderness. MUSCULOSKELETAL: No edema, No cyanosis. No clubbing. Normal ROM. Intact peripheral pulses. EXTREMITIES: No cyanosis, clubbing, or pedal edema. Skin: Warm. No Rash Assessment and plan: Defibrillator alarm: Cardiomyopathy: Hypertension Hyperlipidemia: Patient presented with defibrillator making alarm sound, otherwise completely asymptomatic. Vitals and labs unremarkable. Troponin negative. Monitor with telemetry. Cardiology consult. Monitor vital signs and labs Continue telemetry monitoring Labs and medication were reviewed. Continue same treatment. Resume home medication. Further recommendations as per clinical course of the patient Dictation was produced using [employer] dictation software. please excuse any grammatical, word or spelling errors. Past Medical History Past Medical History: GERD/Reflux, Hyperlipidemia, Hypertension Additional Past Medical History / Comment(s): recent stress test, hx. bladder cancer-had several tx.'s of chemo instilled in bladder, chronic congestion History of Any Multi-Drug Resistant Organisms: None Reported Past Surgical History: Cardiac Ablation, Heart Catheterization With Stent Additional Past Surgical History / Comment(s): surg for bladder cancer Past Anesthesia/Blood Transfusion Reactions: No Reported Reaction Date of Last Stent Placement:: 2017 Past Psychological History: No Psychological Hx Reported Smoking Status: Never smoker Past Alcohol Use History: Occasional Past Drug Use History: None Reported - Past Family History Father Family Medical History: No Reported History Medications and Allergies Home Medications Medication Instructions Recorded Confirmed Type Omeprazole Magnesium [PriLOSEC OTC] 20 mg PO DAILY 07/17/18 06/02/24 History Aspirin 81 mg PO DAILY chew 07/21/18 06/02/24 Rx Sacubitril/Valsartan [Entresto 24 1 tab PO BID 08/27/22 06/02/24 History mg-26 mg Tablet] Spironolactone 25 mg PO DAILY 08/27/22 06/02/24 History Atorvastatin Calcium [Lipitor] 80 mg PO DAILY #90 tab 04/13/24 06/02/24 Rx Prasugrel [Effient] 10 mg PO DAILY #90 tab 04/13/24 06/02/24 Rx Apixaban [Eliquis] 5 mg PO BID 06/02/24 06/02/24 History carvediloL [Coreg] 6.25 mg PO BID 06/02/24 06/02/24 History Allergies Allergy/AdvReac Type Severity Reaction Status Date / Time No Known Allergies Allergy Verified 06/02/24 10:31 Physical Exam Vitals: Vital Signs Temp Pulse Resp BP Pulse Ox 06/02/24 10:30 62 13 117/59 98 06/02/24 10:03 57 L 18 140/64 97 06/02/24 10:00 64 14 147/58 96 06/02/24 09:30 61 13 133/79 97 06/02/24 09:00 60 13 134/53 97 06/02/24 08:30 58 L 13 128/56 96 06/02/24 08:00 65 18 131/95 98 06/02/24 07:54 60 14 131/95 97 06/02/24 07:26 98.3 F 33 L 18 142/69 99 Intake and Output 06/01/24 06/02/24 06/02/24 22:59 06:59 14:59 Other: Weight 81.647 kg Results CBC & Chem 7: 06/02/24 09:55 06/02/24 09:55 Labs: Abnormal Lab Results - Last 24 Hours (Table) 06/02/24 Range/Units 09:55 Sodium 135 L (137-145) mmol/L Glucose 118 H (74-99) mg/dL
--- NOTE | 2024-06-03 13:49 | P.CRDCN ---
History of Present Illness Consult date: 06/02/24 History of present illness: HISTORY OF PRESENTING ILLNESS 59-year-old who is known to Dr. Copeland recently got a pacemaker placed. His pacemaker was making an alarming sound therefore he presented to the ER. On interrogation was noticed that it was firing for RV lead malfunctioning. On careful review of the interrogation was noticed that it was oversensing. It was also noticed that patient was having frequent PVCs. ECG did not show any QTc prolongation REVIEW OF SYSTEMS 14 point review of system is negative except what is mentioned above in HPI. PHYSICAL EXAMINATION Vital signs reviewed. Head: Normocephalic. Eyes: Sclerae nonicteric. Neck: Brisk carotid upstroke, no jugular venous distention. Lungs: Clear to auscultation. Heart: Regular rate and rhythm, S1-S2, no S3, no murmur or rub. Abdomen: Soft nontender, positive bowel sounds. Extremities: No edema, intact distal pulses. Neuro: Alert, oritented, no focal deficits. Detailed neuro exam was not per formed. ASSESSMENT Inappropriate sound alarm from the pacemaker due to oversensing of RV lead Frequent PVCs S/p PPM PLAN Give 2 g of magnesium sulfate. His magnesium and potassium was within normal limits. His medication list was reviewed and he is not on any QTc prolonging medication. His QTc interval was within normal limit. Settings were changed to avoid oversensing of the RV lead Cleared for discharge with outpatient follow Dr. Copeland in next 1 to 2 weeks Giorgi Manning MD, FAC, RPVI Thank you for allowing [facility] to participate in this patient's care. Feel free to reach out in case of any followup questions. Past Medical History Past Medical History: GERD/Reflux, Hyperlipidemia, Hypertension Additional Past Medical History / Comment(s): recent stress test, hx. bladder cancer-had several tx.'s of chemo instilled in bladder, chronic congestion History of Any Multi-Drug Resistant Organisms: None Reported Past Surgical History: Cardiac Ablation, Heart Catheterization With Stent Additional Past Surgical History / Comment(s): surg for bladder cancer Past Anesthesia/Blood Transfusion Reactions: No Reported Reaction Date of Last Stent Placement:: 2017 Past Psychological History: No Psychological Hx Reported Smoking Status: Never smoker Past Alcohol Use History: Occasional Past Drug Use History: None Reported - Past Family History Father Family Medical History: No Reported History Medications and Allergies Home Medications Medication Instructions Recorded Confirmed Type Omeprazole Magnesium [PriLOSEC OTC] 20 mg PO DAILY 07/17/18 06/02/24 History Aspirin 81 mg PO DAILY chew 07/21/18 06/02/24 Rx Sacubitril/Valsartan [Entresto 24 1 tab PO BID 08/27/22 06/02/24 History mg-26 mg Tablet] Spironolactone 25 mg PO DAILY 08/27/22 06/02/24 History Atorvastatin Calcium [Lipitor] 80 mg PO DAILY #90 tab 04/13/24 06/02/24 Rx Prasugrel [Effient] 10 mg PO DAILY #90 tab 04/13/24 06/02/24 Rx Apixaban [Eliquis] 5 mg PO BID 06/02/24 06/02/24 History carvediloL [Coreg] 6.25 mg PO BID 06/02/24 06/02/24 History Allergies Allergy/AdvReac Type Severity Reaction Status Date / Time No Known Allergies Allergy Verified 06/02/24 10:31 Results 06/02/24 09:55 06/02/24 09:55 06/02/24 09:55 06/02/24 09:55
== END 2024-06-02 18:50 | disposition home or self-care (01) ==
LOC: EC 07:18 → 3SCARD 11:22
PROVIDERS: ADMIT Hospitalist; ATTEND Hospitalist
DX: T82.110A Breakdown (mechanical) of cardiac electrode, initial encounter (principal); I42.9 Cardiomyopathy, unspecified; I49.3 Ventricular premature depolarization; I10 Essential (primary) hypertension; E78.5 Hyperlipidemia, unspecified; K21.9 Gastro-esophageal reflux disease without esophagitis; Z79.02 Long term (current) use of antithrombotics/antiplatelets; Z79.82 Long term (current) use of aspirin; Z79.01 Long term (current) use of anticoagulants; Z79.899 Other long term (current) drug therapy; Z95.810 Presence of automatic (implantable) cardiac defibrillator
CPT/HCPCS: 36415; 93005; 80053; 83735; 84484; 85025; G0378; J3475; 96365; 96366; 99285